=== PATIENT | female | born 1990 | race Caucasian/White ===

== ENCOUNTER 2020-01-05 03:40 | Inpatient (IN) | payer MEDICAID ==
[2020-01-05] MEDS ORDERED: LACTATED RINGERS 1,000 ML ONE ×2 (05:01→05:42)
[2020-01-05 05:21] LABS: Basophils % (Auto) 0.2 % (0.0-1.8); Eosinophils # (Auto) 0.1 K/mm3 (0.0-0.4); Eosinophils % (Auto) 0.7 % (0.0-4.3); Hematocrit 29.6 % (30.3-42.9); Hemoglobin 10.2 gm/dl (10.1-14.3); Lymphocytes # (Auto) 2.4 K/mm3 (1.2-5.4); Mean Corpuscular HGB Conc 35 % (30-34); Mean Corpuscular Volume 84 fl (79-97); Monocytes # (Auto) 0.5 K/mm3 (0.0-0.8); Monocytes % (Auto) 6.1 % (0.0-7.3); Platelet Count 248 K/mm3 (140-440); Red Blood Count 3.53 M/mm3 (3.65-5.03); Red Cell Distribution Width 14.9 % (13.2-15.2)
[2020-01-05] MEDS ORDERED: TERBUTALINE 1 MG/1 ML INJ SUB-Q PRN (05:40)
[2020-01-05] MEDS ORDERED: fentaNYL 100 MCG/2 ML INJ IV PRN (05:40)
[2020-01-05] MEDS ORDERED: ePHEDrine SULFATE 50 MG/1 ML INJ IV PRN (05:40)
[2020-01-05] MEDS ORDERED: LIDOCAINE (2%) 20 MG/1 ML VIAL 20 ML MDV INFILTRATI ONE (05:40)
[2020-01-05] MEDS ORDERED: ONDANSETRON 4 MG/2 ML INJ IV PRN ×2 (05:40→06:15)
[2020-01-05] MEDS ORDERED: ePHEDrine SULFATE 50 MG/1 ML INJ ONE (05:43)
[2020-01-05] MEDS ORDERED: fentaNYL-BUPIV 2 MCG/ML-0.125% 200 MCG/100 ML BAG EPIDURAL ONE (05:43)
[2020-01-05] MEDS ORDERED: OXYTOCIN DRIP 30 UNITS/500 ML BAG IV SCH ×2 (06:00→08:00)
[2020-01-05] MEDS ORDERED: DEXMEDETOMIDINE 200 MCG/2 ML VIAL IV ONE (06:00)
[2020-01-05] MEDS: LACTATED RINGERS 1,000 ML IV SCH ×2 (06:09→07:50)
--- NOTE | 2020-01-05 06:09 | History and Physical Report ---
History of Present Illness Date of examination: 01/05/20 (pt presented to Triage with ROM) Chief complaint: Carla masters History of present illness: EDC Confirmation: 01/09/2020 Past History : 4 Term Births: 3 Premature Births: 0 Living Children: 3 Para: 3 Mult. Births: 0 Prev : 0 Aborta: 0 Elect. Ab: 0 Spont. Ab: 0 Ectopics: 0 # 1 Delivery date: 01/16/2012 Weeks Gestation: 40 Delivery type: Hours of labor: 10 Anesthesia type: epidural Delivery location: [place] Sex: Female weight: 8-8 Name: Salvador # 2 Delivery date: 07/24/2013 Weeks Gestation: 39 Delivery type: Hours of labor: 10 Anesthesia type: epidural Delivery location: [place] Sex: Male weight: 8-2 Name: Sarai Comments: Elective Induction # 3 Delivery date: 11/02/2015 Weeks Gestation: 40 Delivery type: Hours of labor: 6 Anesthesia type: epidural Delivery location: [place] Sex: Female weight: 9-3 Name: Nik Comments: Elective induction Past Medical History: Negative Past Medical History Past Surgical History: WENDY(2009) Family History Summary: Other Family Member - Has No Family History of Ovarvian Cancer - Entered On: 12/16/2019 Other Family Member - Has No Family History of Colon Cancer - Entered On: 12/16/2019 Other Family Member - Has Family History of Hypertension - Entered On: 12/16/2019 Other Family Member - Has Family History of Diabetes - Entered On: 12/16/2019 Other Family Member - Has Family History Breast Cancer - Entered On: 12/16/2019 Social History: Marital Status: Single Children: 3 Occupation: Unemployed Smoking History: Patient is a former smoker. Risk Factors: Smoked Tobacco Use: Former smoker Cigarettes: Yes -- 1/2 pack(s) per day, Years smoked: 2015 Year quit: 05/2019 Smokeless Tobacco Use: Never Passive smoke exposure: no Drug use: no HIV high-risk behavior: no Caffeine use: 1 drinks per day Alcohol use: yes Drinks per day: social Exercise: yes Times per week: 2 Seatbelt use: 100 % PAP Smear History: Date of Last PAP Smear: 06/19/2019 Results: normal Past Medical History Surgery (Non-chicle grinder feeder): WENDY(2009) Abnormal PAP: positive, LEEP Infertility: negative Uterine Anomaly: negative Social Hx: Marital Status: Single Children: 3 Occupation: Unemployed Smoking History: Patient is a former smoker. Infection History Hx of STD: chlamydia HIV Risk Eval: no Hepatitis B Risk Eval: low risk Personal hx. of genital herpes: no Genetic History Congenital Heart Defect: Mom: no Dad: no Lokesh Disease: Mom: no Dad: no Thalassemia Mom: no Dad: no Neural Tube Defect Mom: no Dad: no Down's Syndrome Mom: no Dad: no Kelvin-Sachs Mom: no Dad: no Sickle Cell Disease/Trait Mom: no Dad: no Hemophilia Mom: no Dad: no Muscular Dystrophy Mom: no Dad: no Cystic Fibrosis Mom: no Dad: no Melvin Chorea Mom: no Dad: no Mental Retardation Mom: no Dad: no Fragile X Mom: no Dad: no Other Genetic/Chromosomal Disorder Mom: no Dad: no Child w/other defect Mom: no Dad: no Enviromental Exposures Xray Exposure: no Medication, drug, or alcohol use since LMP: no Exposure to Cat Liter: no Active Medications: None Current Allergies: No known allergies Past History - Obstetrical History Expected Date of Delivery: 01/09/20 Actual Gestation: 39 Week(s) 3 Day(s) : 4 Para: 3 Hx # Term Pregnancies: 3 Number of Pregnancies: 0 Spontaneous Abortions: 0 Induced : 0 Number of Living Children: 3 Medications and Allergies Allergies Allergy/AdvReac Type Severity Reaction Status Date / Time No Known Allergies Allergy Verified 01/05/20 05:12 Home Medications Medication Instructions Recorded Confirmed Last Taken Type Vit-Fe Fumar-FA [ 1 tab PO DAILY 01/05/20 01/05/20 2 Days Ago History Vitamin] ~01/03/20 Active Meds: Active Medications Ephedrine Sulfate (Ephedrine Sulfate) 10 mg IV Q2M PRN PRN Reason: Hypotension Fentanyl (Sublimaze) 100 mcg IV Q2H PRN PRN Reason: Pain,Severe (7-10) LABOR PAIN Oxytocin/Sodium Chloride (Pitocin/Ns 30 Unit/500ml) 30 units in 500 mls @ 2 mls/hr IV TITR ZAID; Protocol Lactated Ringer's (Lactated Ringers) 1,000 mls @ 125 mls/hr IV DIRECT ZAID Oxytocin/Sodium Chloride (Pitocin/Ns 30 Unit/500ml) 30 units in 500 mls @ 40 mls/hr IV TITR ZAID; Protocol Ondansetron HCl (Zofran) 4 mg IV Q8H PRN PRN Reason: Nausea And Vomiting Terbutaline Sulfate (Brethine) 0.25 mg SUB-Q ONCE PRN PRN Reason: Hyperstimulation/Hypertonicity Review of Systems All systems: negative - Vital Signs Vital signs: Vital Signs Temp Pulse Resp BP Pulse Ox 98.6 F 85 18 135/68 97 01/05/20 03:58 01/05/20 03:58 01/05/20 03:58 01/05/20 03:58 01/05/20 03:58 Temp Pulse Resp BP Pulse Ox 98.6 F 67 19 127/65 99 01/05/20 05:32 01/05/20 06:04 01/05/20 05:32 01/05/20 05:04 01/05/20 06:04 - Physical Exam Breasts: Positive: deferred Cardiovascular: Regular rate, Normal S1, Normal S2 Lungs: Positive: Normal air movement Abdomen: Positive: normal appearance, soft, normal bowel sounds. Negative: distention, tenderness Genitourinary (Female): Positive: normal external genitalia Vulva: both: normal Vagina: Positive: normal moisture. Negative: discharge Cervix: Negative: lesion, discharge Uterus: Positive: normal size, normal contour Adnexa: both: normal Anus/Rectum: Positive: normal perianal skin, heme negative. Negative: rectal mass, hemorrhoids Extremities: Positive: normal Deep Tendon Reflex Grade: Normal +2 - Obstetrical FHR: category 1 Uterine Contraction Monitor Mode: External Cervical Dilatation: 3 (clear fluid) Cervical Effacement Percentage: 60 station: -2 Uterine Contraction Pattern: Regular Uterine Tone Measurement Phase: Resting Uterine Contraction Intensity: Moderate Results Result Diagrams: 01/05/20 04:40 Abnormal lab results 01/05/20 Range/Units 04:40 RBC 3.53 L (3.65-5.03) M/mm3 Hct 29.6 L (30.3-42.9) % MCHC 35 H (30-34) % All other labs normal. GBS Negative Current OB Labs Blood Type: B (09/23/2019) Rh Type: positive (09/23/2019) Rh Antibody Screen: negative (09/23/2019) Hgb: 10.7 (09/23/2019) Hct: 32.2 (09/23/2019) Platelets: 290 (09/23/2019) Rubella: immune (09/23/2019) RPR: nonreactive (09/23/2019) Hep B Surface Antigen: negative (09/23/2019) HIV: negative (09/23/2019) Pap Smear: normal (06/19/2019) Assessment and Plan [id number] @ 39 weeks with SROM GBS negative All orders in EMR
[2020-01-05] MEDS ORDERED: diphenhydrAMINE 50 MG/ML VIAL IV PRN (06:15)
[2020-01-05] MEDS ORDERED: NALOXONE 2 MG/2 ML INJ IV PRN (06:15)
[2020-01-05] MEDS ORDERED: NalbUPHINE 10 MG/1 ML INJ IV PRN (06:15)
--- NOTE | 2020-01-05 06:17 | Anesthesia Consultation ---
Anesthesia Consult and Med Hx Date of service: 01/05/20 - Airway Anesthetic Teeth Evaluation: Good ROM Head & Neck: Adequate Mental/Hyoid Distance: Adequate Mallampati Class: Class II Intubation Access Assessment: Probably Good - Pulmonary Exam CTA: Yes - Cardiac Exam Cardiac Exam: RRR - Pre-Operative Health Status ASA Pre-Surgery Classification: ASA2 Proposed Anesthetic Plan: Epidural - Pulmonary Hx Smoking: No Hx Sleep Apnea: No - Cardiovascular System Hx Hypertension: No Hx Heart Attack/AMI: No - Central Nervous System Hx Psychiatric Problems: Yes ( depression 2016) - Gastrointestinal Hx Gastroesophageal Reflux Disease: No - Endocrine Hx Insulin Dependent Diabetes: No Hx Non-Insulin Dependent Diabetes: No - Other Systems Hx Alcohol Use: Yes (not since )
--- NOTE | 2020-01-05 06:18 | Progress Note ---
Labor Epidural - Labor Epidural Start Time: 06:00 Stop Time: 06:16 Performed by:: MILTON MEDINA ([facility]) Procedure: Patient is requesting a laboring epidural for laboring pain. Patient IDed, H&P reviewed, all questions and concerns were answered, and consent was signed. Timeout was performed at bedside. Patient in sitting position. Sterile prep and drape was performed. 3ml of 1% lidocaine skin wheal at L[3]- L [4]. 18-gauge Touhy epidural needle was advanced to loss of resistance with air technique. Negative CSF negative blood. Epidural catheter advanced to [10] centimeters. [-] Aspiration [-] test dose. Sterile dressing applied. Patient tolerated procedure.
[2020-01-05] MEDS ORDERED: fentaNYL-BUPIV 2 MCG/ML-0.125% 200 MCG/100 ML BAG EPIDURAL SCH (07:00)
--- NOTE | 2020-01-05 09:27 | Progress Note ---
Assessment and Plan Anesthesia here to see pt. Anticipate delivery Subjective - Subjective Date of service: 01/05/20 (c/o discomfort with epidural) Principal diagnosis: IUP 39w SROM Interval history: EDC Confirmation: 01/09/2020 Past History : 4 Term Births: 3 Premature Births: 0 Living Children: 3 Para: 3 Mult. Births: 0 Prev : 0 Aborta: 0 Elect. Ab: 0 Spont. Ab: 0 Ectopics: 0 # 1 Delivery date: 01/16/2012 Weeks Gestation: 40 Delivery type: Hours of labor: 10 Anesthesia type: epidural Delivery location: [place] Sex: Female weight: 8-8 Name: Salvador # 2 Delivery date: 07/24/2013 Weeks Gestation: 39 Delivery type: Hours of labor: 10 Anesthesia type: epidural Delivery location: [place] Sex: Male weight: 8-2 Name: Sarai Comments: Elective Induction # 3 Delivery date: 11/02/2015 Weeks Gestation: 40 Delivery type: Hours of labor: 6 Anesthesia type: epidural Delivery location: [place] Sex: Female weight: 9-3 Name: Nik Comments: Elective induction Past Medical History: Negative Past Medical History Past Surgical History: WENDY(2009) Family History Summary: Other Family Member - Has No Family History of Ovarvian Cancer - Entered On: 12/16/2019 Other Family Member - Has No Family History of Colon Cancer - Entered On: 12/16/2019 Other Family Member - Has Family History of Hypertension - Entered On: 12/16/2019 Other Family Member - Has Family History of Diabetes - Entered On: 12/16/2019 Other Family Member - Has Family History Breast Cancer - Entered On: 12/16/2019 Social History: Marital Status: Single Children: 3 Occupation: Unemployed Smoking History: Patient is a former smoker. Risk Factors: Smoked Tobacco Use: Former smoker Cigarettes: Yes -- 1/2 pack(s) per day, Years smoked: 2015 quit: 05/2019 Smokeless Tobacco Use: Never Passive smoke exposure: no Drug use: no HIV high-risk behavior: no Caffeine use: 1 drinks per day Alcohol use: yes Drinks per day: social Exercise: yes Times per week: 2 Seatbelt use: 100 % PAP Smear History: Date of Last PAP Smear: 06/19/2019 Results: normal Past Medical History Surgery (Non-pressure sealer and tester): LEEP(2010) Abnormal PAP: positive, LEEP Infertility: negative Uterine Anomaly: negative Social Hx: Marital Status: Single Children: 3 Occupation: Unemployed Smoking History: Patient is a former smoker. Infection History Hx of STD: chlamydia HIV Risk Eval: no Hepatitis B Risk Eval: low risk Personal hx. of genital herpes: no Genetic History Congenital Heart Defect: Mom: no Dad: no Lokesh Disease: Mom: no Dad: no Thalassemia Mom: no Dad: no Neural Tube Defect Mom: no Dad: no Down's Syndrome Mom: no Dad: no Kelvin-Sachs Mom: no Dad: no Sickle Cell Disease/Trait Mom: no Dad: no Hemophilia Mom: no Dad: no Muscular Dystrophy Mom: no Dad: no Cystic Fibrosis Mom: no Dad: no [place] Chorea Mom: no Dad: no Mental Retardation Mom: no Dad: no Fragile X Mom: no Dad: no Other Genetic/Chromosomal Disorder Mom: no Dad: no Child w/other defect Mom: no Dad: no Enviromental Exposures Xray Exposure: no Medication, drug, or alcohol use since LMP: no Exposure to Cat Liter: no Active Medications: None Current Allergies: No known allergies Patient reports: movement normal Objective - Vital Signs Vital Signs: Vital Signs - 12hr 01/05/20 01/05/20 01/05/20 03:58 04:02 04:07 Temperature 98.6 F Pulse Rate 85 92 H 71 Respiratory 18 Rate Blood Pressure 135/68 Blood Pressure 135/68 [Right] O2 Sat by Pulse 97 98 98 Oximetry 01/05/20 01/05/20 01/05/20 04:12 04:17 04:22 Temperature Pulse Rate 83 68 73 Respiratory Rate Blood Pressure Blood Pressure [Right] O2 Sat by Pulse 98 99 98 Oximetry 01/05/20 01/05/20 01/05/20 04:27 04:32 04:37 Temperature Pulse Rate 73 85 79 Respiratory Rate Blood Pressure Blood Pressure [Right] O2 Sat by Pulse 99 98 99 Oximetry 01/05/20 01/05/20 01/05/20 04:42 04:59 05:04 Temperature Pulse Rate 73 71 75 Respiratory Rate Blood Pressure 127/65 Blood Pressure [Right] O2 Sat by Pulse 98 98 98 Oximetry 01/05/20 01/05/20 01/05/20 05:09 05:14 05:19 Temperature Pulse Rate 73 73 73 Respiratory Rate Blood Pressure Blood Pressure [Right] O2 Sat by Pulse 99 99 98 Oximetry 01/05/20 01/05/20 01/05/20 05:24 05:29 05:32 Temperature 98.6 F Pulse Rate 71 72 Respiratory 19 Rate Blood Pressure Blood Pressure [Right] O2 Sat by Pulse 98 98 Oximetry 01/05/20 01/05/20 01/05/20 05:34 05:39 05:44 Temperature Pulse Rate 67 75 70 Respiratory Rate Blood Pressure Blood Pressure [Right] O2 Sat by Pulse 99 99 99 Oximetry 01/05/20 01/05/20 01/05/20 05:49 05:54 05:59 Temperature Pulse Rate 72 72 72 Respiratory Rate Blood Pressure Blood Pressure [Right] O2 Sat by Pulse 100 99 98 Oximetry 01/05/20 01/05/20 01/05/20 06:04 06:09 06:14 Temperature Pulse Rate 67 63 78 Respiratory Rate Blood Pressure 112/62 Blood Pressure [Right] O2 Sat by Pulse 99 99 99 Oximetry 01/05/20 01/05/20 01/05/20 06:16 06:18 06:19 Temperature Pulse Rate 80 82 75 Respiratory Rate Blood Pressure 132/63 135/72 Blood Pressure [Right] O2 Sat by Pulse 99 Oximetry 01/05/20 01/05/20 01/05/20 06:20 06:22 06:24 Temperature Pulse Rate 68 68 71 Respiratory Rate Blood Pressure 136/62 137/63 137/63 Blood Pressure [Right] O2 Sat by Pulse 99 Oximetry 01/05/20 01/05/20 01/05/20 06:26 06:28 06:29 Temperature Pulse Rate 73 70 74 Respiratory Rate Blood Pressure 136/63 131/57 Blood Pressure [Right] O2 Sat by Pulse 99 Oximetry 01/05/20 01/05/20 01/05/20 06:30 06:34 06:36 Temperature Pulse Rate 65 83 81 Respiratory Rate Blood Pressure 125/60 136/63 Blood Pressure [Right] O2 Sat by Pulse 98 Oximetry 01/05/20 01/05/20 01/05/20 06:39 06:40 06:44 Temperature Pulse Rate 74 76 70 Respiratory Rate Blood Pressure 128/60 Blood Pressure [Right] O2 Sat by Pulse 98 98 Oximetry 01/05/20 01/05/20 01/05/20 06:45 06:49 06:50 Temperature Pulse Rate 75 83 76 Respiratory Rate Blood Pressure 126/58 117/56 Blood Pressure [Right] O2 Sat by Pulse 98 Oximetry 01/05/20 01/05/20 01/05/20 06:54 06:56 06:59 Temperature Pulse Rate 69 75 69 Respiratory Rate Blood Pressure 120/55 Blood Pressure [Right] O2 Sat by Pulse 98 98 Oximetry 01/05/20 01/05/20 01/05/20 07:00 07:04 07:05 Temperature Pulse Rate 68 76 80 Respiratory Rate Blood Pressure 114/53 118/57 Blood Pressure [Right] O2 Sat by Pulse 98 Oximetry 01/05/20 01/05/20 01/05/20 07:09 07:10 07:14 Temperature Pulse Rate 84 81 77 Respiratory Rate Blood Pressure 116/58 Blood Pressure [Right] O2 Sat by Pulse 97 98 Oximetry 01/05/20 01/05/20 01/05/20 07:17 07:19 07:22 Temperature Pulse Rate 73 83 82 Respiratory Rate Blood Pressure 119/58 116/56 Blood Pressure [Right] O2 Sat by Pulse 97 Oximetry 01/05/20 01/05/20 01/05/20 07:24 07:25 07:29 Temperature Pulse Rate 78 76 78 Respiratory Rate Blood Pressure 108/52 Blood Pressure [Right] O2 Sat by Pulse 98 98 Oximetry 01/05/20 01/05/20 01/05/20 07:30 07:34 07:35 Temperature Pulse Rate 81 82 82 Respiratory Rate Blood Pressure 114/55 115/56 Blood Pressure [Right] O2 Sat by Pulse 98 Oximetry 01/05/20 01/05/20 01/05/20 07:39 07:42 07:44 Temperature Pulse Rate 78 80 76 Respiratory Rate Blood Pressure 118/55 Blood Pressure [Right] O2 Sat by Pulse 98 98 Oximetry 01/05/20 01/05/20 01/05/20 07:46 07:49 07:54 Temperature Pulse Rate 78 80 78 Respiratory Rate Blood Pressure 123/57 Blood Pressure [Right] O2 Sat by Pulse 98 98 Oximetry 01/05/20 01/05/20 01/05/20 07:59 08:04 08:09 Temperature Pulse Rate 81 78 82 Respiratory Rate Blood Pressure Blood Pressure [Right] O2 Sat by Pulse 98 98 97 Oximetry 01/05/20 01/05/20 01/05/20 08:14 08:19 08:24 Temperature Pulse Rate 75 82 86 Respiratory Rate Blood Pressure Blood Pressure [Right] O2 Sat by Pulse 98 98 97 Oximetry 01/05/20 01/05/20 01/05/20 08:29 08:34 08:39 Temperature Pulse Rate 78 73 72 Respiratory Rate Blood Pressure Blood Pressure [Right] O2 Sat by Pulse 99 98 98 Oximetry 01/05/20 01/05/20 01/05/20 08:44 08:47 08:49 Temperature Pulse Rate 72 73 73 Respiratory Rate Blood Pressure 114/53 Blood Pressure [Right] O2 Sat by Pulse 98 97 Oximetry 01/05/20 01/05/20 01/05/20 08:54 08:59 09:04 Temperature Pulse Rate 86 79 83 Respiratory Rate Blood Pressure Blood Pressure [Right] O2 Sat by Pulse 97 97 97 Oximetry 01/05/20 01/05/20 09:09 09:14 Temperature Pulse Rate 71 68 Respiratory Rate Blood Pressure Blood Pressure [Right] O2 Sat by Pulse 97 98 Oximetry - Exam Breasts: deferred Cardiovascular: Regular rate Lungs: Normal air movement Abdomen: Present: normal appearance, soft. Absent: distention, tenderness Uterus: Present: normal FHR: auscultation normal, category 2 (variables) Uterine Contraction Monitor Mode: Internal Cervical Dilatation: 5 Cervical Effacement Percentage: 100 station: 0 Uterine Contraction Pattern: Regular Uterine Tone Measurement Phase: Resting Uterine Contraction Intensity: Moderate Extremities: normal Deep Tendon Reflex Grade: Normal +2 - Labs Labs: Abnormal Labs 01/05/20 04:40 RBC 3.53 L Hct 29.6 L MCHC 35 H Laboratory Results - last 24 hr 01/05/20 01/05/20 01/05/20 04:40 04:40 04:40 WBC 7.6 RBC 3.53 L Hgb 10.2 Hct 29.6 L MCV 84 MCH 29 MCHC 35 H RDW 14.9 Plt Count 248 Lymph % (Auto) 31.0 Harvey % (Auto) 6.1 Eos % (Auto) 0.7 Baso % (Auto) 0.2 Lymph # (Auto) 2.4 Harvey # (Auto) 0.5 Eos # (Auto) 0.1 Baso # (Auto) 0.0 Seg Neutrophils % 62.0 Seg Neutrophils # 4.7 Syphilis IgG Antibody Nonreactive Rubella IgG Antibody Blood Type B POSITIVE Antibody Screen Negative 01/05/20 01/05/20 04:40 06:22 WBC RBC Hgb Hct MCV MCH MCHC RDW Plt Count Lymph % (Auto) Harvey % (Auto) Eos % (Auto) Baso % (Auto) Lymph # (Auto) Harvey # (Auto) Eos # (Auto) Baso # (Auto) Seg Neutrophils % Seg Neutrophils # Syphilis IgG Antibody Nonreactive Rubella IgG Antibody Immune Blood Type Antibody Screen
[2020-01-05] MEDS ORDERED: WITCH HAZEL/ GLYCERIN PAD TP PRN (10:27)
[2020-01-05] MEDS ORDERED: diphenhydrAMINE 25 MG CAP PO PRN (10:27)
[2020-01-05] MEDS ORDERED: LANOLIN/ZINC/DIMETHICONE (LANSINOH) 7 GM TP PRN (10:27)
[2020-01-05] MEDS ORDERED: PROMETHAZINE 25 MG TAB PO PRN (10:27)
--- NOTE | 2020-01-05 10:34 | Procedure Note ---
OB Delivery Note - Delivery Date of Delivery: 01/05/20 Manager Respiratory Care: TERE AMBRIZ Estimated blood loss: 300cc - Vaginal Delivery presentation: vertex Delivery position: OA Intrapartum events: none Delivery induction: none Delivery augmentation: pitocin Delivery monitor: internal FHT, internal uterine Route of delivery: Delivery placenta: spontaneous Delivery cord: 3 umbilical vessels Episiotomy: none Delivery laceration: none Anesthesia: epidural Delivery comments: ORTEGA present Counts correct X 2 live born male delivered OA over intact perineum Baby to mom's abdomen skin to skin. Cord clamped and cut. Placenta and membrane del complete and intact, 3 vessel cord. Pit IVFs. 8/9, EBL 300, Wgt 7-11 Mom and baby remain LDR stable. - A at 1 minute: 8 at 5 minutes: 9 Gender: Male (Loraineyolie wgt 7-11)
[2020-01-05] MEDS ORDERED: IBUPROFEN 600 MG TAB PO SCH (11:00)
--- NOTE | 2020-01-05 13:55 | Post Anesthesia Evaluation ---
- Post Anesthesia Evaluation Patient Participated: Yes Airway Patent: Yes Stable Respiratory Function: Yes Nausea/Vomiting: No Temp > 96.8F: Yes Pain Manageable: Yes Adequeate Hydration: Yes Anesthesia Complications: No Block Receding Appropriately: Yes Patient on Ventilator: No
[2020-01-05] MEDS: IBUPROFEN 800 MG TAB PO SCH ×2 (14:34→22:07)
[2020-01-05] MEDS: SENNOSIDES/DOCUSATE SODIUM 8.6/50 MG TAB PO SCH ×2 (14:35→23:00)
[2020-01-05] MEDS: ACETAMINOPHEN 325 MG TAB PO PRN ×2 (16:53→20:27)
[2020-01-05] MEDS ORDERED: MAGNESIUM HYDROXIDE (MOM) ORAL LIQD UDC PO PRN (22:00)
[2020-01-05] MEDS: DOCUSATE SODIUM 100 MG CAP PO SCH (22:07)
[2020-01-06 02:12] LABS: Hematocrit 30.9 % (30.3-42.9); Hemoglobin 10.5 gm/dl (10.1-14.3)
[2020-01-06] MEDS: ACETAMINOPHEN 325 MG TAB PO PRN ×2 (02:22→13:35)
[2020-01-06] MEDS: IBUPROFEN 800 MG TAB PO SCH (06:07)
--- NOTE | 2020-01-06 08:18 | Discharge Summary ---
Providers - Providers Date of Admission: 01/05/20 05:41 Date of discharge: 01/06/20 (Pt stable for discharge home. ) Attending physician: JAYLA GASCA Primary care physician: JAYLA GASCA Hospitalization Reason for admission: active labor Delivery: Episiotomy: none Laceration: none Other procedures: none complications: none Discharge diagnosis: IUP at term delivered baby: male Hospital course: S: Pt doing well. Voiding, ambulating, and passing flatus okay. BC: BTL. O: VSS. I&O's adequate. H/H 10.5/30.9. Fundus firm, minimal bleeding noted. A: 29 y.o. s/p , doing well. In good condition for discharge home. P: Discharge home with instructions. To schedule son's circumcision in 1 week. To schedule a visit in 4 weeks. Condition at discharge: Good Disposition: DC-01 TO HOME OR SELFCARE Plan - Discharge Medications Prescriptions: Lidocain2.5%/Prilocai2.5% [Emla] 5 gm TP PRN #1 tube Ibuprofen [Motrin 800 MG tab] 800 mg PO TID PRN #30 tablet PRN Reason: Pain - Provider Discharge Summary Activity: routine, no sex for 6 weeks, no heavy lifting 4 weeks, no strenuous exercise Diet: routine Instructions: routine Additional instructions: [] Smoking cessation referral if applicable(refer to patient education folder for contact #) [] Refer to [facility] Booklet Call your doctor immediately for: * Fever > 100.5 * Heavy vaginal bleeding ( >1 pad per hour) * Severe persistent headache * Shortness of breath * Reddened, hot, painful area to leg or breast * Drainage or odor from incision. * Keep incision clean and dry at all times and follow doctor's instructions regarding bathing/showering - Follow up plan Follow up: JAYLA GASCA MD [Primary Care Provider] - 7 Days (Congratulations! Please schedule your son's circumcision appointment in 1 week. You have been prescribed EMLA cream for your son's circumcision. Please do not use this cream at home, but bring it with you to your son's circumcision appointment. Please schedule you visit in 4 weeks. If you have any questions or concerns after discharge, please do not hesitate to call the office at [phone]. )
[2020-01-06] MEDS ORDERED: PRENATAL VIT27-FE FUMARATE-FOLIC ACID VIT TAB PO SCH (10:00)
[2020-01-06] MEDS ORDERED: MEASLES, MUMPS & RUBELLA 12,500 UNIT/0.5 ML VACCINE SUB-Q ONE (10:27)
[2020-01-06] MEDS ORDERED: DIPHtheria,PERTUSSIS(ACELL),TETANUS VACCINE/PF 0.5 ML VIAL IM ONE (10:28)
[2020-01-06] MEDS: DOCUSATE SODIUM 100 MG CAP PO SCH (11:40)
[2020-01-06 16:14] VITALS: BP 114/60
== END 2020-01-06 15:40 | disposition home or self-care (01) | DRG 775 ==
LOC: TRG 03:40 → APU 03:42 → TRG 04:13 → LD 04:13 → OBSVTOIN 05:41 → OB 12:45
PROVIDERS: ADMIT Obstetrics & Gynecology; ATTEND Obstetrics & Gynecology
PROC: 10E0XZZ Delivery of Products of Conception, External Approach (ICD-10-PCS; principal; 2020-01-05)
PROC: 3E0R3BZ Introduction of Anesthetic Agent into Spinal Canal, Percutaneous Approach (ICD-10-PCS; 2020-01-05)
PROC: 00HU33Z Insertion of Infusion Device into Spinal Canal, Percutaneous Approach (ICD-10-PCS; 2020-01-05)
PROC: 3E0234Z Introduction of Serum, Toxoid and Vaccine into Muscle, Percutaneous Approach (ICD-10-PCS; 2020-01-06)
PROC: 3E0134Z Introduction of Serum, Toxoid and Vaccine into Subcutaneous Tissue, Percutaneous Approach (ICD-10-PCS; 2020-01-06)
DX: O80 Encounter for full-term uncomplicated delivery (principal); Z3A.39 39 weeks gestation of pregnancy; Z37.0 Single live birth; Z23 Encounter for immunization; Z82.49 Family history of ischemic heart disease and other diseases of the circulatory system; Z83.3 Family history of diabetes mellitus; Z80.3 Family history of malignant neoplasm of breast
CPT/HCPCS: 36415; 85014; 85018; 85025; 86592; 86762; 86850; 86900; 86901; G0378; A6250; J2590; J7120; U0003